=== PATIENT | female | born 1955 | race Caucasian/White ===

== ENCOUNTER 2020-07-25 07:43 | Outpatient (REF) | payer MEDICARE, MEDICAID, SELFPAY ==
--- NOTE | 2020-07-25 07:51 | MM_ITS ---
EXAMINATION: MM SCREENING DIGITAL BREAST TOMOSYNTHESIS, BILATERAL CLINICAL INFORMATION: Screening. Asymptomatic. The lifetime risk of breast cancer based on the Tyrer-Cuzick Model is 4%. COMPARISON: Mammography: 12/12/2015, 09/07/2014 TECHNIQUE: Digital breast tomosynthesis is performed in both the craniocaudal and mediolateral oblique views along with computer-aided detection (CAD). Synthesized 2D images are generated from the tomosynthesis. FINDINGS: There are scattered areas of fibroglandular density (ACR BI-RADS breast composition Category b). There are stable bilateral circumscribed nodularity likely intramammary nodes in the posterior upper outer quadrants. There is no interval mass or architectural abnormality or developing density. Scattered bilateral benign ductal secretory calcifications are again seen, bilaterally increased. Again, there are numerous uniform fine punctate round calcifications regionally distributed in the bilateral outer quadrants similar to prior exam. Please are considered benign and due to the bilateral symmetry and stability over years. The axilla and skin contours are unremarkable. No significant changes from prior exams. MM/MM tomosynthesis screening BI IMPRESSION: No significant changes from prior studies. ASSESSMENT: BI-RADS 2: Benign RECOMMENDATION: Routine annual mammography screening. This patient's information was entered into a reminder system with a target due date for their next mammogram.
== END 2020-07-25 07:44 | disposition home or self-care (01) ==
LOC: HO.MAMMO 07:43
PROVIDERS: Visit Provider Internal Medicine
DX: Z12.31 Encounter for screening mammogram for malignant neoplasm of breast (principal)
CPT/HCPCS: 77063; 77067

== ENCOUNTER 2021-03-31 06:02 | Emergency (ER) | payer MEDICARE, MEDICAID, SELFPAY ==
[2021-03-31 06:17] VITALS: BP 125/55; PULSE 86; RESP 16; TEMP 36.6; O2SAT 97; BMI 37.2
[2021-03-31 08:15] VITALS: O2SAT 95
[2021-03-31 08:49] LABS: Influenza A PCR NEGATIVE (Negative); Influenza B PCR NEGATIVE (Negative); Resp Syncy Virus RNA Qual PCR NEGATIVE (Negative); SARS COV2 PCR INHOUSE NEGATIVE (Negative)
--- NOTE | 2021-03-31 08:49 | ED.URI ---
HPI - URI/Sore Throat General Chief Complaint: Upper Respiratory Symptoms Stated Complaint: general medical Time Seen by Provider: 03/31/21 08:18 Source: patient Mode of arrival: ambulatory Limitations: no limitations History of Present Illness MD elicited complaint: sore throat, rhinorrhea, nasal congestion and sinus pain Pertinent past history: other (History of sinus infections) Onset (ago): day(s) (3 days worse today) Consistency: constant and progressively worsening Severity: moderate Description of mucous: clear, watery, yellow and green Able to tolerate fluids by mouth: Yes Exacerbating factors: nothing Relieving factors: nothing Associated symptoms: chills, myalgias, diaphoresis, headache, rhinorrhea, nasal congestion and sore throat Treatments prior to arrival: none Related Data Previous Rx's Medication Instructions Recorded amoxicillin 875 mg-potassium 1 tab PO BID PRN 10 Days #20 tab 03/31/21 clavulanate 125 mg tablet (Augmentin) fluticasone propionate 50 1 spray INTRANASAL BID #16 g 03/31/21 mcg/actuation nasal spray,suspension (Flonase Allergy Relief) Allergies Allergy/AdvReac Type Severity Reaction Status Date / Time ? unsure of antibiotic name Allergy Unknown Uncoded 01/02/21 14:02 AN ANTIBIOTIC (DOESN'T Allergy Unknown Uncoded 01/02/21 14:02 REMEMBER NAME) Review of Systems Review of Systems: Constitutional : Positive chills/fatigue/malaise, No Fever ENT/Mouth : Positive sore throat/rhinorrhea/nasal congestion/sinus pressure, no ear pain Eyes: No Discharge Cardiovascular : No Chest Pain, No SOB Respiratory : No Cough, No Sputum, No Wheezing, No Smoke Exposure, No Dyspnea Gastrointestinal : No Nausea, No Vomiting, No Diarrhea Genitourinary : No irregular bleeding, No Dysuria, No Urinary Frequency, No Hematuria, No Urinary Incontinence, No Urgency, No Flank Pain, Musculoskeletal : No Myalgia Skin : No rash Neuro : No Headache Yes all other systems are reviewed and are negative [facility] Past Medical History Attestation statement: The following information was validated with the patient. Social History Social History Alcohol intake: never Patient Tobacco Use Status: Never used Tobacco Use of substances other than those prescribed or required for medical reasons: No Advance Directives: No Physical Exam Vital Signs: Vital Signs: Last Vital Signs Temp 97.9 F 03/31/21 06:17 Pulse 86 03/31/21 06:17 Resp 16 03/31/21 06:17 BP 125/55 L 03/31/21 06:17 Pulse Ox 95 03/31/21 08:15 Body Mass Index 37.2 vital signs have been reviewed as normal and appeared to be correct. Blood pressure normal. Heart rate normal. Respiration rate normal. Temperature normal. Oxygen saturation normal. Appearance: Alert. Oriented X3. No acute distress. Head: Normal external exam. Normocephalic. Atraumatic. Patient with positive sinus pressure. Eyes: PERRLA. EOMI. Conjunctiva and sclera normal. Eyelids normal. ENT: EAC normal. TM's Normal. Pharynx normal. Uvula midline. Moist mucous membranes. No trismus noted. No drooling noted. No muffled voice noted. Neck: Normal inspection. Neck supple. FROM. No adenopathy. Thyroid Normal. No meningeal signs. No neck mass noted. CVS: Normal heart rate and rhythm. Heart sound normal. Pulses normal throughout. No murmurs/rales/gallops. Respiratory: No respiratory distress. Painless inspiration. Breath sounds normal. No wheezes/rales/rhonchi noted. Chest nontender. No accessory muscle usage noted or decreased air movement noted. Back: Full range of motion noted. No rashes/lesion/induration/fluctuance or signs of infection noted. Skin: Skin warm and dry. Normal skin color. Normal skin turgor. No rashes/lesions/lacerations noted. Extremities: Extremities exhibit normal range of motion. Extremities nontender. Neuro: Oriented X 3. No motor deficit. No sensory deficit. Reflexes normal. Normal steady gait. No focal neuro deficits noted. Vascular: + radial pulses/+ 2 distal pedal pulses/+2 dorsalis pedis b/l. Normal cap refill. No cyanosis noted to upper extremity nails and lower extremity toes nails. Course Course Course Narrative: 65-year-old female presenting to the ED with 3 days of intermittent headaches, sinus pressure, rhinorrhea/nasal congestion, sore throat, body aches, diaphoresis. Denies recent travel or sick contacts or any other symptoms complaints or concerns at this time. COVID/RSV/flu negative. On exam patient does not appear to have pharyngitis. Due to history of sinus infections will DC home with antibiotics for sinusitis and instructions to return if any new or worsening symptoms to follow up with primary care provider. Patient understands agrees with this plan. MDM - URI/Sore Throat Medical Records Attestation: I reviewed the patient's medical records. Lab Data Attestation: I reviewed the patient's lab results. Labs: Lab Results 03/31/21 Range/Units 08:00 Coronavirus (PCR) NEGATIVE (Negative) Influenza Type A (PCR) NEGATIVE (Negative) Influenza Type B (PCR) NEGATIVE (Negative) RSV RNA Qual (PCR) NEGATIVE (Negative) Discharge Plan Discharge Clinical Impression: Sinusitis Patient Disposition: Home, Self-Care Instructions: Sinusitis (ED) Prescriptions: New fluticasone propionate [Flonase Allergy Relief] 50 mcg/actuation spray,suspension 1 spray intranasal BID Qty: 16 RF: 0 amoxicillin-pot clavulanate [Augmentin] 875-125 mg tablet 1 tab PO BID PRN (Reason: Sinusitis) 10 Days Qty: 20 RF: 0 Referrals: Physician,Unknown [Primary Care Provider] - 2 days (your pcp) Print Language: Vietnamese
[2021-03-31 09:13] VITALS: BP 119/58; PULSE 90; RESP 16; O2SAT 97
--- NOTE | 2021-03-31 09:25 | PC.NURSE ---
pt states she is not vaccinated, she states she is afraid of the vaccine. Discussed vaccination safety with pt, she states she understands but remains afraid. She then wanted to discuss children and vaccines and that children should not be forced to wear masks. Explained discharge instructions to pt, asked her to follow with her PCP. She continued to discuss Covid related topics, explained to pt she was welcome to her viewpoint and this RN did not wish any further discussion. Discussed pt's sinus infection and home methods she can use for comfort. Pt discharged home.
== END 2021-03-31 09:46 | disposition home or self-care (01) ==
PROVIDERS: Emergency Provider Emergency Medicine Emergency Medical Services
DX: J32.9 Chronic sinusitis, unspecified (principal); Z20.822 Contact with and (suspected) exposure to COVID-19; J02.9 Acute pharyngitis, unspecified
CPT/HCPCS: 0241U; 36415; 99283; 99285

== ENCOUNTER 2022-07-12 16:30 | Outpatient (REF) | payer MEDICARE, MEDICAID, SELFPAY ==
--- NOTE | ~2022-07-12 | XR_ITS ---
EXAMINATION: XR CHEST CLINICAL INFORMATION: Shortness of breath COMPARISON: Previous chest x-ray February 2019 TECHNIQUE: 2 views of the chest were obtained. FINDINGS: No significant abnormality is noted involving the heart, lungs, mediastinum, bony thorax or soft tissues. XR/XR chest 2V IMPRESSION: Unremarkable examination.
== END 2022-07-12 16:31 | disposition home or self-care (01) ==
LOC: HO.XRAY 16:30
PROVIDERS: PCP Internal Medicine; Visit Provider Internal Medicine Critical Care Medicine
DX: J45.909 Unspecified asthma, uncomplicated (principal); R06.02 Shortness of breath
CPT/HCPCS: 71046

== ENCOUNTER 2023-02-06 11:08 | Outpatient (REF) | payer MEDICARE, MEDICAID, SELFPAY ==
[2023-02-06 12:04] LABS: Anion Gap 13 (12-20); Blood Urea Nitrogen 15 mg/dL (9-16); Calcium 9.5 mg/dL (8.4-10.2); Carbon Dioxide 29 mmol/L (22-29); Chloride 104 mmol/L (96-108); Estimated Glomerular Filt Rate > 60; Glucose Random 111 mg/dL (60-115); Sodium 142 mmol/L (135-145)
[2023-02-06 12:21] LABS: Thyroid Stimulating Hormone 0.96 uIU/mL (0.32-4.0)
[2023-02-06 12:37] LABS: Folate 15.3 ng/mL (> or = 4.0); Vitamin B12 551 pg/mL (200-900)
== END 2023-02-06 11:09 | disposition home or self-care (01) ==
LOC: HO.LAB 11:08
PROVIDERS: PCP Internal Medicine; Visit Provider Psychiatry & Neurology Neurology
DX: G31.84 Mild cognitive impairment of uncertain or unknown etiology (principal)
CPT/HCPCS: 36415; 80048; 82607; 82746; 84443

== ENCOUNTER 2023-02-19 10:10 | Outpatient (REF) | payer MEDICARE, MEDICAID, SELFPAY ==
--- NOTE | ~2023-02-19 | CT_ITS ---
EXAMINATION: CT HEAD WITHOUT CONTRAST CLINICAL INFORMATION: Mild cognitive impairment. COMPARISON: No relevant prior imaging. TECHNIQUE: Contiguous axial imaging was performed from the skull base to vertex without intravenous administration of contrast. This CT examination was performed using dose optimization techniques as appropriate, variously including the following: *Automated exposure control *Adjustment of mA and/or kV according to patient size (this includes techniques or standardized protocols for targeted exams where dose is matched to indication/reason for exam; i.e. extremities or head) *Use of iterative reconstruction technique DLP: 800 mGy-cm FINDINGS: There is no acute intracranial hemorrhage or abnormal extra-axial collection. No intracranial mass effect or midline shift. Lateral and third ventricles are normal. No hydrocephalus. Scattered nonspecific foci of hypoattenuation visualized within the periventricular white matter. Chowdary-white matter differentiation is otherwise preserved and there is no evidence of acute territorial infarct. The calvarium and skull base are intact. Mastoid air cells and middle ear cavities are well aerated. No active paranasal sinus disease. CT/CT head/brain wo IV con IMPRESSION: There are scattered chronic small vessel ischemic changes within the periventricular white matter. Otherwise unremarkable examination. No evidence of acute territorial infarct or hemorrhage.
== END 2023-02-19 10:11 | disposition home or self-care (01) ==
LOC: HO.CT 10:10
PROVIDERS: PCP Internal Medicine; Visit Provider Psychiatry & Neurology Neurology
DX: G31.84 Mild cognitive impairment of uncertain or unknown etiology (principal)
CPT/HCPCS: 70450

== ENCOUNTER 2024-01-13 21:01 | Emergency (ER) | payer MEDICARE, MEDICAID, SELFPAY ==
[2024-01-13 21:08] VITALS: BP 144/71; PULSE 85; RESP 20; TEMP 36.5; O2SAT 99; BMI 33.7
[2024-01-13 21:40] LABS: MANUAL DIFF FLAG NO
[2024-01-13 21:54] LABS: Basophils Absolute Auto 0.1 X10*3/uL (0.0-0.2); Basophils Percent Auto 1.1 % (0-2); Eosinophils Absolute Auto 0.3 X10*3/uL (0.0-0.4); Eosinophils Percent Auto 4.3 % (0-4); Hematocrit 38.8 % (37.0-47.0); Hemoglobin 13.9 g/dl (12.0-16.0); Imm Gran Abs Auto 0.02 X10*3/uL (0.00-0.03); Imm Gran Pct Auto 0.3 % (0.0-0.4); Lymphocytes Absolute Auto 2.1 X10*3/uL (1.2-4.9); Lymphocytes Percent Auto 28.2 % (20-40); Mean Corpuscular HGB Conc 35.8 g/dl (31.0-35.0); Mean Corpuscular Hemoglobin 30.5 pg (27.0-33.0); Mean Corpuscular Volume 85.3 fL (80.0-98.0); Mean Platelet Volume 9.7 fL (9.4-12.3); Monocytes Absolute Auto 0.5 X10*3/uL (0.1-1.2); Monocytes Percent Auto 7.3 % (2-11); Neutrophils Absolute Auto 4.3 x10*3/uL (2.0-8.3); Neutrophils Percent Auto 58.8 % (45-73); Platelet Count 238 X10*3/uL (160-400); Red Blood Count 4.55 X10*6/uL (4.20-5.50); White Blood Count 7.3 X10*3/uL (4.8-10.8)
[2024-01-13 21:56] LABS: Alanine Aminotransferase 19 U/L (0-31); Albumin Level 4.7 g/dL (3.5-5.0); Alkaline Phosphatase 69 U/L (39-117); Anion Gap 18 (12-20); Aspartate Amino Transferase 19 U/L (5-31); Bilirubin Total 0.7 mg/dL (0.0-1.0); Blood Urea Nitrogen 21 mg/dL (9-16); Calcium 10.1 mg/dL (8.4-10.2); Carbon Dioxide 23 mmol/L (22-29); Chloride 108 mmol/L (96-108); Creatinine Clr Calc Pharmacy 75.7; Estimated Glomerular Filt Rate > 60; Glucose Random 135 mg/dL (60-115); Potassium 3.8 mmol/L (3.3-5.1); Sodium 145 mmol/L (135-145); Total Protein 7.9 g/dL (6.5-8.0)
[2024-01-13 21:57] LABS: Appearance Urine Cloudy; Color Urine Dark Yellow; Glucose Urine UA Negative (Negative); Leukocyte Esterase Urine Small (1+) (Negative); Nitrite Urine Negative (Negative); Specific Gravity - Urine >= 1.030 (1.005-1.025); UMIC TRIGGER UACC YES; Urine Blood Negative (Negative); Urine Ketones Trace mg/dL (Negative); Urine Protein 30 (1+) mg/dL (Neg-Trace)
[2024-01-13 22:08] LABS: Bacteria Urine None Seen (None Seen); Hyaline Casts Urine 0-2 /LPF (0-2); RBC Urine 0-2 /HPF (0-2); Squamous Epithelial Cell Urine 0-2 /HPF (0-2); UACC Culture Trigger YES; WBC Urine 0-5 /HPF (0-5)
[2024-01-13 22:09] LABS: Calcium Oxalate Crystals Urine Present
[2024-01-14 03:25] VITALS: BP 124/61; PULSE 75; O2SAT 98
--- OUTSIDE RECORDS SUMMARY | 2024-01-14 03:59 | XMS_ITS | Continuity of Care Document ---
Author Organization [facility] Address [address] [place] [address]- Care Team Providers Care Seafood Manager Name Role Phone Arjun ARANGO, Clem Primary Care Physician Encounter [facility] Date(s): 05/16/23 - 05/23/23 [facility] [address], [place] [address] Attending Physician: Barb Yen MD Referring Physician: Clem Díaz MD Allergies, Adverse Reactions, Alerts No Known Allergies Medications Advair Diskus 100 mcg-50 mcg inhalation powder 1, inhalation, Inhalation, 2 times a day, Refills 0, Maintenance, 05/22/20 10:31:00 EDT Start Date: 05/22/20 Status: Ordered amphetamine-dextroamphetamine 10 mg oral capsule, extended release 1 capsule = 10 mg, By Mouth, 3 times a day, 0 Refills, Maintenance, 05/22/20 10:31:00 EDT Start Date: 05/22/20 Status: Ordered aspirin 81 mg oral delayed release tablet 1 tablet = 81 mg, By Mouth, Daily, 0 Refills, Maintenance, 05/22/20 10:32:00 EDT Start Date: 05/22/20 Status: Ordered Citalopram = 40 mg, By Mouth, Daily, 0 Refills, Maintenance, 05/22/20 10:39:00 EDT Start Date: 05/22/20 Status: Ordered CoQ10 = 300 mg, By Mouth, Daily, 0 Refills, Maintenance, 05/22/20 10:33:00 EDT Start Date: 05/22/20 Status: Ordered glyburide-metformin 5 mg-500 mg oral tablet 1 tablet, By Mouth, 2 times a day, 0 Refills, Maintenance, 09/05/14 14:41:39 Start Date: 09/05/14 Status: Ordered Januvia 100 mg oral tablet 1 tablet = 100 mg, By Mouth, Daily, 0 Refills, Maintenance, 09/05/14 14:41:49 Start Date: 09/05/14 Status: Ordered Levemir 100 units/mL subcutaneous solution Subcutaneous Infusion, 0 Refills, Maintenance, 05/22/20 10:28:00 EDT Start Date: 05/22/20 Status: Ordered Lisinopril = 30 mg, By Mouth, Daily, 0 Refills, Maintenance, 05/22/20 10:29:00 EDT Start Date: 05/22/20 Status: Ordered Multivitamin Daily, 0 Refills, Maintenance, 05/22/20 10:32:00 EDT Start Date: 05/22/20 Status: Ordered NovoLog Inj Subcutaneous Infusion, 3 times a day before meals, 0 Refills, Maintenance, 09/05/14 14:39:55 Start Date: 09/05/14 Status: Ordered ProAir HFA 2 puffs, Inhalation, Every 6 hours, 0 Refills, Maintenance, 05/22/20 10:31:00 EDT Start Date: 05/22/20 Status: Ordered Vytorin 10 mg-10 mg oral tablet 1 tablet, By Mouth, Daily, 0 Refills, Maintenance, 09/05/14 14:42:13 Start Date: 09/05/14 Status: Ordered Problem List Condition Confirmation Course Effective Dates Status Health St atus Informant Asthma Confirmed Active Obesity (BMI 30-39.9) Confirmed Active Acid reflux Confirmed Active Tourette syndrome Confirmed Active Glaucoma Confirmed Active HLD (hyperlipidemia) Confirmed Active HTN (hypertension) Confirmed Active Incisional hernia Confirmed Active Abdominal wall mass Confirmed Active Anxiety and depression Confirmed Active PTSD (post-traumatic stress disorder) Confirmed Active Type 2 diabetes mellitus Confirmed Active Vital Signs Most recent to oldest [Reference Range]: 1 Height 160.02 cm (05/16/23 11:26 AM) Oxygen Saturation [94-100 %] 99 % (05/16/23 11:26 AM) Pulse Rate [55-90 bpm] 81 bpm (05/16/23 11:26 AM) Blood Pressure [90-138/55-84 mm Hg] 135/ 73mm Hg (05/16/23 11:26 AM) Respiratory Rate [16-30 br/min] 20 br/mi n (05/16/23 11:26 AM) Temperature [96.8-100.4 DegF] 97.7 DegF (05/16/23 11:26 AM) Mode of Delivery (Oxygen) Room air (05/16/23 11:26 AM) Blood pressure sites Arm, left (05/16/23 11:26 AM) Temperature Route Oral (05/16/23 11:26 AM) Social History Social History Type Response Smoking Status Former smoker, quit more than 30 days ago; Other: quit 8 years ago; entered on: 05/22/20 Sex Note * Camilla Donohue: PERFORM, SIGN, VERIFY Event Display: Patient Education/Instruction Authored Date: [id number] [facility] Clinical Summary Name JOLENE ZIMMERMAN Age 68 Years 1955 PCP Arjun ARANGO, Clem PCP Visit Date 05/16/2023 10:44:00 Additional Instructions: Scheduled Appointments?? Future Appointments ?No Future Appointments Scheduled Follow-Up Instructions ?? Diagnosis Medications: Please continue your medications until treatment is completed or stopped by your provider. Discuss any questions related to medications with your provider. New Medications [facility] [place], [place] [id number], [phone] Clarithromycin (clarithromycin 500 mg oral tablet) 1 tab(s) Oral every 12 hours for 7 Days. Refills: 0. Next Dose: Medications to Continue with No Changes These medications were not printed or sent to your pharmacy Albuterol (ProAir HFA) 2 puff(s) Inhalation every 6 hours. Next Dose: Amphetamine-Dextroamphetamine (amphetamine-dextroamphetamine 10 mg oral capsule, extended release) 1 capsule Oral 3 times a day. Next Dose: Aspirin (aspirin 81 mg oral delayed release tablet) 1 tab(s) Oral Daily. Next Dose: Citalopram 40 Milligram Oral Daily. Next Dose: Ezetimibe-Simvastatin (Vytorin 10 mg-10 mg oral tablet) 1 tab(s) Oral Daily. Next Dose: Fluticasone-Salmeterol (Advair Diskus 100 mcg-50 mcg inhalation powder) 1 inhalation Inhalation twice a day. Next Dose: Glyburide-Metformin (glyburide-metformin 5 mg-500 mg oral tablet) 1 tab(s) Oral twice a day. Next Dose: Insulin Aspart (NovoLog Inj) Subcutaneous Infusion 3 times a day before meals. Next Dose: Insulin Detemir (Levemir 100 units/mL subcutaneous solution) Subcutaneous Infusion. Next Dose: Lisinopril 30 Milligram Oral Daily. Next Dose: Multivitamin Daily. Next Dose: sitagliptin (Januvia 100 mg oral tablet) 1 tab(s) Oral Daily. Next Dose: Ubiquinone (CoQ10) 300 Milligram Oral Daily. Next Dose: Allergy Info:?? NKA Medications Given This Visit Future Orders ?No future orders Vital Signs Height 160.02 cm Weight BMI Blood Pressure 135 mm Hg/73 mm Hg Temperature 97.7 DegF Pulse Rate 81 bpm Respiratory Rate 20 br/min 02 Sat Mode of Delivery 99 %/Room air You can now view a summary of your hospital visit from the comfort of your home through a free online portal called [employer]. [employer] is a website that allows you to securely view your medical information including discharge summary, medications and follow-up visits. ??You can alsosend a secure electronic message to your doctor???s office to request appointments, renew medications or just ask a question. You can enroll at [email or web address] or register during your next office visit. Disclaimer:?? The information provided is of a general nature and is intended to be used in conjunction with the recommendations and advice of your health care practitioner. ??Every effort has been made to ensure that the information provided is accurate and complete at the time it is provided to you however, as your needs change, or, as new ??information becomes available, different or additional instructions may be required. If you have questions, please consult with your primary care provider or pharmacist, as appropriate. ??This information is not intended to serve as substitution for assessment and evaluation by a qualified health care provider. If you do not have a primary care provider, you may find a [facility] provider by calling [facility] [employer] Link at [phone]. [facility], in keeping with [facility] guidance, no longer requires face masks for staff, patientsor visitors in most situations. Similar to time spent indoors at other locations, there is the chance that you were exposed to respiratory viruses during your time with us (such as flu or COVID-19).? If you develop symptoms concerning for a viral respiratory infection, please seek testing (and treatment if indicated) from your medical provider or home test kit. For information about the plan of care including goals and instructions for your diagnosis, please see the patient education orders section of this document. Patient Education Materials?? The content of this educational material or handout may have been modified, supplemented, or adapted from its original content and format to support your individualized medical care. Patient Care team information Care Team Personnel Name: Clem Díaz MD Position: Reference Physician Member Role: PCP Address: Address: [address] [place] [address] [address] [facility] [place] [address]- Care Team Related Persons Name: PHILIP ZIMMERMAN Address: home [address] [place] [address] Name: ARNOL GONZALES Address: [address] [place] [address]
--- OUTSIDE RECORDS SUMMARY | 2024-01-14 03:59 | XMS_ITS | Continuity of Care Document ---
Author Organization [facility] Address [address] [place] [address]- Care Team Providers Care Shoe Reconditioner Name Role Phone Arjun ARANGO, Clem Primary Care Physician Encounter [facility] Date(s): 05/16/23 - 06/15/23 [facility] [address] [place], [place] [address] Attending Physician: Emilio Madison Admitting Physician: Emilio Madison Referring Physician: AdmtrEmilio Allergies, Adverse Reactions, Alerts No Known Allergies [...] Active Type 2 diabetes mellitus Confirmed Active Social History Social History Type Response Smoking Status Former smoker, quit more than 30 days ago; Other: quit 8 years ago; entered on: 05/22/20 Sex Patient Care team information Care Team Personnel Name: Clem Díaz MD Position: Reference Physician Member Role: PCP Address: Address: [address] [place] [address]- Care Team Related Persons Name: PHILIP ZIMMERMAN Address: home [address] [place] [id number] Name: CHRISTIAN, ARNOL Address: home [address] [place] [id number]
[2024-01-14 05:10] VITALS: BP 129/61; PULSE 70; O2SAT 95
--- NOTE | 2024-01-14 05:54 | ED_ITS ---
HPI - Female Genitourinary General Chief complaint: Urogenital-Female Stated complaint: lower abd pain Time Seen by Provider: 01/14/24 05:54 Source: patient Mode of arrival: ambulatory Limitations: no limitations History of Present Illness ED Provider: dr Dai HPI Narrative: Patient no significant past medical history complaining of dysuria frequency or intensity for last few hours with suprapubic discomfort no hematuria no history of kidney stone no flank pain no nausea no vomiting Related Data Home Medications ?Medication ?Instructions ?Recorded ?Confirmed albuterol sulfate 90 mcg/actuation 2 puff inhalation Q4-6H PRN 04/10/21 09/26/22 aerosol inhaler alclometasone 0.05 % topical cream appl topical 04/10/21 09/26/22 bismuth subsalicylate 262 mg 2 tab PO QID 04/10/21 chewable tablet (Bismatrol) blood sugar diagnostic (SensopiaTouch #10 ea 04/10/21 09/26/22 Ultra Test strips) citalopram 40 mg tablet 40 mg PO BEDTIME 04/10/21 09/26/22 clotrimazole-betamethasone 1 appl topical 04/10/21 09/26/22 %-0.05 % topical cream coenzyme Q10 100 mg capsule 100 mg PO DAILY 04/10/21 dextroamphetamine-amphetamine 10 1 tab PO BID 04/10/21 09/26/22 mg tablet dextroamphetamine-amphetamine ER 1 cap PO DAILY 04/10/21 09/26/22 30 mg 24hr capsule,extend release empagliflozin 10 mg tablet 10 mg PO DAILY 04/10/21 (Jardiance) ezetimibe 10 mg tablet 10 mg PO DAILY 04/10/21 09/26/22 fluconazole 150 mg tablet 150 mg PO ONCE 04/10/21 glipizide 5 mg-metformin 500 mg 2 tab PO BID 04/10/21 09/26/22 tablet insulin aspart U-100 100 unit/mL unit subcut 04/10/21 09/26/22 (3 mL) subcutaneous pen (Novolog FlexPen U-100 Insulin aspart) insulin detemir U-100 100 unit/mL unit subcut 04/10/21 09/26/22 (3 mL) subcutaneous pen (Levemir FlexTouch U-100 Insulin) metronidazole 250 mg tablet 250 mg PO QID 04/10/21 omeprazole 20 mg capsule,delayed 20 mg PO BID 04/10/21 release omeprazole 20 mg tablet,delayed 20 mg PO BID 04/10/21 release omeprazole 40 mg capsule,delayed 40 mg PO DAILY 04/10/21 release pen needle, diabetic 31 gauge x #1,200 ea 04/10/21 09/26/22 5/16 (BD Ultra-Fine Short Pen Needle) simvastatin 20 mg tablet 20 mg PO BEDTIME 04/10/21 09/26/22 tetracycline 500 mg capsule 500 mg PO BID 04/10/21 dulaglutide 0.75 mg/0.5 mL mg subcut 09/26/22 09/26/22 subcutaneous pen injector (Trulicity) fluticasone 250 mcg-salmeterol 50 1 ea inhalation BID 09/26/22 09/26/22 mcg/dose blistr powdr for inhalation (Advair Diskus) losartan 100 mg tablet 100 mg PO DAILY 09/26/22 09/26/22 Previous Rx's ?Medication ?Instructions ?Recorded amoxicillin 875 mg-potassium 1 tab PO BID PRN Sinusitis 10 days 03/31/21 clavulanate 125 mg tablet #20 tabs (Augmentin) fluticasone propionate 50 1 spray intranasal BID Nasal 03/31/21 mcg/actuation nasal congestion #16 grams spray,suspension (Flonase Allergy Relief) amoxicillin 875 mg-potassium 1 tab PO Q12H 10 days #20 tabs 09/26/22 clavulanate 125 mg tablet cefuroxime axetil 250 mg tablet 250 mg PO BID 7 days #14 tabs 01/14/24 phenazopyridine 200 mg tablet 200 mg PO TID 2 days #6 tabs 01/14/24 (Pyridium) Allergies Allergy/AdvReac Type Severity Reaction Status Date / Time ? unsure of antibiotic name Allergy Unknown Unknown Uncoded 01/13/24 21:11 AN ANTIBIOTIC (DOESN'T Allergy Unknown Unknown Uncoded 01/13/24 21:11 REMEMBER NAME) Review of Systems 2 Review of Systems: Yes all other systems are reviewed and are negative [facility] Social History Social History Alcohol intake: never Patient Tobacco Use Status: Never used Tobacco Smoked in Last 30 Days: No Use of substances other than those prescribed or required for medical reasons: No Advance Directives: No Advance Directives Information Provided: Yes Physical Exam 2 Vital Signs: Vital Signs: Last Vital Signs Temp 97.9 F 01/14/24 06:00 Pulse 70 01/14/24 06:00 Resp 16 01/14/24 06:00 BP 129/61 01/14/24 06:00 Pulse Ox 95 01/14/24 06:00 O2 Del Method Room Air 01/14/24 06:00 BMI result Body Mass Index 33.7 Appearance: Alert. Oriented X3. No acute distress. Eyes: No pallor or icterus ENT: Pharynx normal. Oral Mucosa moist Neck: Normal inspection. Neck supple. CVS: Normal heart rate and rhythm. Pulses normal. Respiratory: No respiratory distress. Equal air entry bilateral, no wheezing/rales/rhonchi Abdomen: Soft and nontender. Bowel sounds are present, no mass palpable, no CVA tenderness Skin: Skin warm and dry. Normal skin color. Normal skin turgor. Extremities: No lower extremity edema. No calf tenderness Neuro: Oriented X 3. Medications Administered Discontinued Medications Generic Name Dose Route Start Last Admin Trade Name Freq PRN Reason Stop Dose Admin Cefuroxime Axetil 500 mg 01/14/24 05:59 01/14/24 06:06 Cefuroxime Axetil 500 Mg Tablet PO 01/14/24 06:00 500 mg ONCE ONE Administration Phenazopyridine HCl 200 mg 01/14/24 05:59 01/14/24 06:06 Phenazopyridine Hcl 200 Mg Tablet PO 01/14/24 06:00 200 mg ONCE ONE Administration Medical Decision Making Medical Decision Making [facility] Narrative: Patient is symptomatic for acute cystitis although has only few leukocytes prescribe Ceftin Lab Data [facility] Lab Attestation statement: I reviewed the patient's lab results. 01/13/24 21:35 01/13/24 21:35 Labs: Lab Results 01/13/24 Range/Units 21:35 WBC 7.3 (4.8-10.8) X10*3/uL RBC 4.55 (4.20-5.50) X10*6/uL Hgb 13.9 (12.0-16.0) g/dl Hct 38.8 (37.0-47.0) % MCV 85.3 (80.0-98.0) fL MCH 30.5 (27.0-33.0) pg MCHC 35.8 H (31.0-35.0) g/dl RDW 13.0 (11.0-16.0) % Plt Count 238 (160-400) X10*3/uL MPV 9.7 (9.4-12.3) fL Immature Gran % (Auto) 0.3 (0.0-0.4) % Neut % (Auto) 58.8 (45-73) % Lymph % (Auto) 28.2 (20-40) % [place] % (Auto) 7.3 (2-11) % Eos % (Auto) 4.3 H (0-4) % Baso % (Auto) 1.1 (0-2) % Lymph # (Auto) 2.1 (1.2-4.9) X10*3/uL [place] # (Auto) 0.5 (0.1-1.2) X10*3/uL Eos # (Auto) 0.3 (0.0-0.4) X10*3/uL Baso # (Auto) 0.1 (0.0-0.2) X10*3/uL Abs Immat Gran (auto) 0.02 (0.00-0.03) X10*3/uL Absolute Neuts (auto) 4.3 (2.0-8.3) x10*3/uL Absolute Nucleated RBC 0.000 (0.0-0.012) X10*3/uL Nucleated RBC % (auto) 0.0 (0.0-0.2) /100WBC Sodium 145 (135-145) mmol/L Potassium 3.8 (3.3-5.1) mmol/L Chloride 108 (96-108) mmol/L Carbon Dioxide 23 (22-29) mmol/L Anion Gap 18 (12-20) BUN 21 H (9-16) mg/dL Creatinine 0.75 (0.5-1.4) mg/dL Estim Creat Clear Calc 75.7 Estimated GFR > 60 Random Glucose 135 H (60-115) mg/dL Calcium 10.1 D (8.4-10.2) mg/dL Total Bilirubin 0.7 (0.0-1.0) mg/dL AST 19 (5-31) U/L ALT 19 (0-31) U/L Alkaline Phosphatase 69 (39-117) U/L Total Protein 7.9 (6.5-8.0) g/dL Albumin 4.7 (3.5-5.0) g/dL Urine Color Dark Yellow Urine Appearance Cloudy Urine pH 5.0 (5.0-9.0) Ur Specific [place] >= 1.030 H (1.005-1.025) Urine Protein 30 (1+) H (Neg-Trace) mg/dL Urine Glucose (UA) Negative (Negative) mg/dL Urine Ketones Trace (Negative) mg/dL Urine Blood Negative (Negative) Urine Nitrite Negative (Negative) Ur Leukocyte Esterase Small (1+) H (Negative) Urine RBC 0-2 (0-2) /HPF Urine WBC 0-5 (0-5) /HPF Ur Squamous Epith Cells 0-2 (0-2) /HPF Calcium Oxalate Crystal Present Urine Bacteria None Seen (None Seen) Hyaline Casts 0-2 (0-2) /LPF Discharge Plan Discharge Clinical Impression: Cystitis Patient Disposition: Home, Self-Care Instructions: Urinary Tract Infection in Women (ED) Additional Instructions: Drink plenty of fluids Possible you have early urinary tract infection Take antibiotics as prescribed Pyridium for bladder discomfort which will changed color of the urine to orange Report to the ER if worsening of the pain/blood in urine Prescriptions: New cefuroxime axetil 250 mg tablet 250 mg PO BID 7 Days Qty: 14 0RF phenazopyridine [Pyridium] 200 mg tablet 200 mg PO TID 2 Days Qty: 6 0RF No Action fluticasone propionate [Flonase Allergy Relief] 50 mcg/actuation spray,suspension 1 spray intranasal BID Qty: 16 0RF Rx Instructions: administer into each nostril amoxicillin-pot clavulanate [Augmentin] 875-125 mg tablet 1 tab PO BID PRN (Reason: Sinusitis) 10 Days Qty: 20 0RF dextroamphetamine-amphetamine 30 mg capsule,extended release 24hr 1 cap PO DAILY dextroamphetamine-amphetamine 10 mg tablet 1 tab PO BID Levemir FlexTouch U100 Insulin 100 unit/mL (3 mL) insulin pen subcut (DME) pen needle, diabetic [BD Ultra-Fine Short Pen Needle] 31 gauge x 5/16 needle See Rx Instructions subcut QID Qty: 1200 Rx Instructions: As directed (DME) OneTouch Ultra Test Strip See Rx Instructions .ROUTE TID Qty: 10 Rx Instructions: As directed Jardiance 10 mg tablet 10 mg PO DAILY ezetimibe 10 mg tablet 10 mg PO DAILY simvastatin 20 mg tablet 20 mg PO BEDTIME bismuth subsalicylate [Bismatrol] 262 mg tablet,chewable 2 tab PO QID omeprazole 20 mg capsule,delayed release(DR/EC) 20 mg PO BID metronidazole 250 mg tablet 250 mg PO QID tetracycline 500 mg capsule 500 mg PO BID coenzyme Q10 100 mg capsule 100 mg PO DAILY insulin aspart U-100 [Novolog FlexPen U-100 Insulin] 100 unit/mL (3 mL) insulin pen subcut glipizide-metformin 5-500 mg tablet 2 tab PO BID albuterol sulfate 90 mcg/actuation HFA aerosol inhaler 2 puff inhalation Q4-6H PRN omeprazole 40 mg capsule,delayed release(DR/EC) 40 mg PO DAILY citalopram 40 mg tablet 40 mg PO BEDTIME clotrimazole-betamethasone 1-0.05 % cream topical fluconazole 150 mg tablet 150 mg PO ONCE alclometasone 0.05 % cream topical omeprazole 20 mg tablet,delayed release (DR/EC) 20 mg PO BID Boostrix Tdap 2.5-8-5 Lf-mcg-Lf/0.5mL syringe 0.5 ml IM ONCE Qty: 0.5 0RF Trulicity 0.75 mg/0.5 mL pen injector subcut losartan 100 mg tablet 100 mg PO DAILY fluticasone propion-salmeterol [Advair Diskus] 250-50 mcg/dose blister with device 1 ea inhalation BID amoxicillin-pot clavulanate 875-125 mg tablet 1 tab PO Q12H 10 Days Qty: 20 0RF Interventions: ED Discharge Assessment Last Done: 01/14/24 06:00 Discharge Date/Time: 01/14/24 06:00 Print Language: Slovak
[2024-01-14 06:00] VITALS: BP 129/61; PULSE 70; RESP 16; TEMP 36.6; O2SAT 95
[2024-01-14] MEDS: Phenazopyridine HCL 200 MG TABLET PO (06:06)
[2024-01-14] MEDS: cefuroxime axetiL 500 MG TABLET PO (06:06)
== END 2024-01-14 06:00 | disposition home or self-care (01) ==
PROVIDERS: Emergency Provider Internal Medicine; PCP Internal Medicine
DX: N30.90 Cystitis, unspecified without hematuria (principal); R30.0 Dysuria; Z79.899 Other long term (current) drug therapy
CPT/HCPCS: 36415; 80053; 81001; 85025; 87086; 99283; 99284

== ENCOUNTER 2024-07-03 23:19 | Emergency (ER) | payer MEDICARE, MEDICAID, SELFPAY ==
[2024-07-03 23:28] VITALS: BP 150/75; BP 194/86; PULSE 101; PULSE 115; RESP 16; TEMP 36.9; O2SAT 96; BMI 33.0
[2024-07-03 23:33] VITALS: BP 150/75; PULSE 100; RESP 18; TEMP 36.9; O2SAT 96
[2024-07-04] MEDS: LORazepam 1 MG TABLET PO (00:33)
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
[2024-07-04 00:43] VITALS: BP 150/75; PULSE 100; RESP 18; TEMP 36.9; O2SAT 96
== END 2024-07-04 00:44 | disposition home or self-care (01) ==
PROVIDERS: Emergency Provider Internal Medicine; PCP Internal Medicine
DX: F41.9 Anxiety disorder, unspecified (principal)
CPT/HCPCS: 99282; 99283

== ENCOUNTER 2025-01-22 21:28 | Emergency (ER) | payer MEDICARE, OTHER, SELFPAY ==
[2025-01-22 21:35] VITALS: BP 139/72; BP 154/79; PULSE 101; PULSE 112; RESP 20; TEMP 36.8; O2SAT 95; O2SAT 96; BMI 33.7
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
--- OUTSIDE RECORDS SUMMARY | 2025-01-22 21:55 | XMS_ITS | Clinical Summary ---
Author Organization [address] [facility] Address [address] [place] [address] Phone Care Team Providers Care Driving Instructor Name Role Phone Clem Díaz MD Primary Care Provider [phone] Allergies No known active allergies Medications pen needle, diabetic (BD Ultra-Fine Short Pen Needle) 31 gauge x 5/16 needle use twice a day 10/17/19 11 Active ONETOUCH ULTRASOFT LANCETS MISC Test once a day 04/13/20 20 Active OneTouch Ultra Test test strip USE TO TEST BLOOD SUGAR 3 TIMES A DAY.. 12/21/19 21 Active alclomethasone (ACLOVATE) 0.05 % cream APPLY TOPICALLY TO AFFECTED AREAS OF DERMATITIS TWO TIMES A DAY FOR UP TO 2 WEEKS THEN TAKE 1 WEEK OFF. MAY REPEAT NEEDED 02/13/20 21 Active allopurinoL (ZYLOPRIM) 100 mg tablet daily. 05/26/20 20 Active amphetamine-de xtroamphetamin e XR (ADDERALL XR) 30 mg 24 hr capsule TAKE ONE CAPSULE BY MOUTH EVERY DAY 05/03/20 20 Active amphetamine-de xtroamphetamin e (ADDERALL) 10 mg tablet Take 1 Tablet by mouth as needed. 12/21/19 21 Active dulaglutide (Trulicity) 1.5 mg/0.5 mL pen injector injection Inject into the skin. Active fluticasone-sa lmeterol (Advair Diskus) 250-50 mcg/dose diskus inhaler INHALE ONE PUFF BY MOUTH TWICE A DAY 03/17/20 23 Active famotidine (PEPCID) 20 mg tablet Take 1 Tablet by mouth 2 times daily as needed for Heartburn. 05/01/20 23 Active fluticasone propionate (FLONASE) 50 mcg/actuation nasal spray 1 [place] by Nasal route 2 times daily as needed for Rhinitis or Allergies. 12/23/19 24 Active glipiZIDE-metF ORMIN (METAGLIP) 5-500 mg per tablet 5-500 mg 2 Times Daily. 12/04/19 17 Active insulin detemir (Levemir FlexPen) 100 unit/mL (3 mL) injection pen INJECT 30 UNITS SUBCUTANEOUSLY ONCE A DAY.. 05/26/20 20 Active insulin lispro 100 unit/mL injection 100 Units/mL. 07/10/20 12 Active ketoconazole (NIZORAL) 2 % cream APPLY 2 TIMES DAILY TO RASH UNDER BREASTS, ABDOMEN, AND GROIN/INNER THIGHS FOR 3 WEEKS OR UNTIL RESOLVED, MAY REPEAT NEEDED 11/16/19 21 Active latanoprost (XALATAN) 0.005 % ophthalmic solution INSTILL 1 DROP INTO BOTH EYES AT BEDTIME.. 03/21/20 20 Active triamcinolone (KENALOG) 0.025 % ointment APPLY 2 TIMES A DAY TO AFFECTED AREAS UNDER THE BREASTS/ ABDOMEN, AND GROIN AREA WHEN RASH IS FLARING, (MAY USE UP TO 2 WEEKS THEN TAKE 1 WE 11/17/19 21 Active albuterol HFA (Ventolin HFA) 90 mcg/actuation inhaler INHALE ONE PUFF BY MOUTH EVERY 4 HOURS NEEDED FOR WHEEZING OR SHORTNESS OF BREATH 08/12/20 23 Active DULoxetine (CYMBALTA) [address] capsule TAKE 1 CAPSULE BY MOUTH DAILY ALONG WITH 20MG CITALOPRAM FOR 1 WEEK, THEN INCREASE TO 2 CAPSULES DAILY, AND STOP THE CITALOPRAM. 01/12/20 24 Active mupirocin (BACTROBAN) 2 % ointment ADMINISTER 1 APPLICATION TOPICALLY TO THE SKIN TWO TIMES A DAY FOR 10 DAYS 06/10/20 24 Active simvastatin (ZOCOR) 20 mg tablet TAKE ONE TABLET BY MOUTH AT BEDTIME 90 tablet 1 07/23/20 24 Active ezetimibe (ZETIA) 10 mg tablet TAKE ONE TABLET BY MOUTH EVERY DAY 90 tablet 1 07/23/20 24 Active coenzyme Q-10 100 mg capsule Take 1 capsule (100 mg total) by mouth 1 (one) time each day. 90 capsule 5 07/27/20 24 Active losartan (COZAAR) 100 mg tablet Take 1 tablet (100 mg total) by mouth 1 (one) time each day. 90 tablet 1 10/07/19 25 Active tirzepatide (Mounjaro) 7.5 mg/0.5 mL injection Inject 0.5 mL (7.5 mg total) under the skin every 7 (seven) days. Active loperamide (IMODIUM) 2 mg capsule Take 1 capsule (2 mg total) by mouth 4 (four) times a day if needed for diarrhea. 60 capsule 1 12/02/19 25 Active omeprazole (PriLOSEC) [address] capsuleIndicat ions:Abdominal pain, chronic, epigastric Take 1 capsule (20 mg total) by mouth 1 (one) time each day. Do not crush or chew. 90 each 1 12/25/19 25 025 Active dicyclomine (BENTYL) 10 mg capsule Take 1 capsule (10 mg total) by mouth 4 (four) times a day if needed (diarrhea). 360 capsule 12/25/19 25 025 Active dicyclomine (BENTYL) 10 mg capsule Take 1 Capsule by mouth 4 times daily (before meals and nightly). Take for abdominal cramping 05/01/20 23 025 Discontin ued(Reord er) omeprazole (PriLOSEC) [address] capsule Take 1 capsule (20 mg total) by mouth 1 (one) time each day. Do not crush or chew. 30 each 1 12/02/19 25 025 Discontin ued(Reord er) Active Problems Problem Noted Date Diagnosed Date Mild chronic gastritis 06/18/2022 Abnormal EKG 04/01/2022 Overview (07/12/2024): Last Assessment & Plan: There are possible inferior Q waves on her EKG. For this reason I would like to obtain an echocardiogram to evaluate cardiac structure and function in case of a silent prior myocardial infarction. Atypical chest pain 03/27/2022 Overview (07/12/2024): Last Assessment & Plan: Unremarkable echocardiogram and stress test without evidence of active ischemia. Patient symptoms on presentation possibly related to gastritis which has now been treated Obstructive sleep apnea 08/16/2020 Overview (07/12/2024): [facility] Home Sleep Apnea Test: Date 08/09/2020; Wt 207#; BMI 37; EMILY (AHI) 8, AI 1; HI 7; Unclassified apneas 0; Obstructive apneas 2; Central apneas 3; Mixed apneas 0; hypopneas 61; average oxygen saturation 93% (lowest 85% without saturations <88% for 5% or more of study) - Obstructive Sleep Apnea - mild; mostly hypopneas; without sleep related hypoventilation by 2019 home sleep apnea test. Abdominal wall mass 02/14/2020 PTSD (post-traumatic stress disorder) 02/01/2019 Severe obesity (BMI 35.0-35. 9 with comorbidity) ([facility] V24, [facility] V28) 02/01/2019 Hyperlipidemia 12/31/2017 Overview (07/12/2024): Last Assessment & Plan: Single elevated reading of LDL is likely spurious in the context of stopping medications for treatment of H. pylori. I would plan to continue statin therapy and at some point in future can recheck lipid profile. Goal LDL less than 100 Allergic rhinitis 12/11/2017 Diabetic neuropathy ([facility] V24, [facility] V28) 0 12/11/2017 Asthma 12/09/2016 Anxiety disorder 12/03/2016 Depression 12/03/2016 Type 2 diabetes mellitus wit h neurological manifestations ([facility] V24, [facility] V28) 11/23/2015 Tourettes syndrome 10/08/2011 Encounters Date Type Department Care Team Description 12/24/2024 10:00 AM EDT Office Visit Gastroenterology - [address] [phone] Bina Easley NP Abdominal pain, chronic, epigastric (Primary Dx); Generalized anxiety disorder 12/01/2024 4:00 PM EDT Office Visit Internal Medicine [address] [phone] Clem Díaz MD Pain of upper abdomen (Primary Dx); Loose stools; Diarrhea, unspecified type; Mild chronic gastritis 11/30/2024 Telephone Internal Medicine - [address] [place] [phone] Clem Díaz MD Abdominal Pain from Last 3 Months Immunizations Name Administration Dates Next Due Tdap Tetanus diptheria acell ular pertussis (Boostrix; Adacel) 7yo and older 09/12/2020 Surgical History Surgery Date Site/Laterality Comments CHOLECYSTECTOMY PROCEDURE: HISTORICAL CHOLECYSTECTOMY HYSTERECTOMY PROCEDURE: HISTORICAL HYSTERECTOMY MULTIPLE TOOTH EXTRACTIONS PROCEDURE: HISTORICAL DENTAL EXTRACTION Medical History Medical History Date Comments Severe obesity (BMI 35.0-39. 9) with comorbidity ([facility] V24, [facility] V28) 02/01/2019 DX:Severe obesity (BMI 35.0- 39.9) with comorbidity ([facility]) Allergic rhinitis 12/11/2017 DX:Allergic rh initis Anxiety disorder 12/03/2016 DX:Anxiety diso rder Asthma 12/09/2016 DX:Asthma Depression 12/03/2016 DX:Depression Diabetic neuropathy ([facility] V24, [facility] V28) 12/11/2017 DX:Diabetic neuropathy ([facility]) Hyperlipidemia 12/31/2017 DX:Hyperlipidemi a Tourettes syndrome 10/08/2011 DX:Tourettes syndrome Type 2 diabetes mellitus wit h neurological manifestations ([facility] V24, [facility] V28) 11/23/2015 DX:Type 2 diabetes mellitus with neurological manifestations ([facility]) PTSD (post-traumatic stress disorder) 02/01/2019 DX:PTSD (post-traumatic stress disorder) Glaucoma DX:Glaucoma; COM MENT: drops Irritable bowel syndrome DX:Irri table bowel syndrome Esophageal reflux DX:Esophageal reflux Social History Tobacco Use Types Packs/Day Years Used Date Smoking Tobacco: Former Smokeless Tobacco: Never Alcohol Use Standard Drinks/Week Comments Not Currently 0 (1 standard drink = 0.6 oz pur e alcohol) Comments Unknown Sex and Gender Information Value Date Recorded Sex Assigned at Not on file Legal Sex Female 1:28 PM EST Gender Identity Not on file Sexual Orientation Not on file Obstetrics History Last Filed Vital Signs Vital Sign Reading Time Taken Comments Blood Pressure 142/75 12/24/2024 9:57 AM EDT Pulse 118 12/24/2024 9:57 AM EDT Temperature 36.9 ??C (98.5 ??F) 12/01/2024 4:16 PM ED T Respiratory Rate - - Oxygen Saturation 98% 12/24/2024 9:57 AM EDT Inhaled Oxygen Concentration - - Weight 86.2 kg (190 lb) 12/24/2024 9:57 AM EDT Height 160 cm (5' 3 ) 12/24/2024 9:57 AM EDT Body Mass Index 33.66 12/24/2024 9:57 AM EDT Plan of Treatment Health Maintenance Due Date Last Done Comments Breast Cancer Screening 1956 Diabetes: Annual Foot Exam 1966 Pneumococcal Vaccine: 50+ Years (1 of 2 - PCV) 1975 Zoster Vaccines (1 of 2) 2006 RSV Immunization Adult Patients (1 - Risk 60-74 years 1-dose series) 2016 Depression Screening 08/03/2022 Hepatitis C Screening 08/03/2022 Medicare Annual Wellness Visit 08/03/2022 Osteoporosis Screening (Bone Density Screening) 08/03/2022 Social Influencers of Health Screening 08/03/2022 Diabetes: Annual Urine Albumin-Creatinine Ratio (uACR) 08/09/2022 04/16/2021 Diabetes: Blood Sugar Contro l Test (HGBA1C) 10/19/2022 04/18/2022 COVID-19 Vaccine (1 - 2023-2 5 season) 2024 Falls Risk Assessment 07/24/2024 07/24/2023 Influenza Vaccine (Season Ended) 2025 Diabetes: Annual Retina Eye Exam 12/16/2025 12/16/2024, 12/16/2023 Diabetes: Annual GFR (Glomerular Filtration Rate) 12/20/2025 12/20/2024, 04/18/2022 Hypertension/CHF/CAD Annual BMP Blood Test 12/20/2025 12/20/2024, 04/18/2022 Cholesterol Screening (Lipid Panel) 04/18/2027 04/18/2022 Colorectal Cancer Screening: Colonoscopy 05/21/2032 05/21/2022 DTaP,Tdap,and Td Vaccines (3 - Td or Tdap) 09/26/2032 09/26/2022, 09/12/2020 HIB Vaccines Aged Out No longer eligi ble based on patient's age to complete this topic HPV Vaccines Aged Out No longer eligi ble based on patient's age to complete this topic Hepatitis A Vaccines Aged Out No long er eligible based on patient's age to complete this topic Hepatitis B Vaccines Aged Out No long er eligible based on patient's age to complete this topic IPV Vaccines Aged Out No longer eligi ble based on patient's age to complete this topic MMR Vaccines Aged Out No longer eligi ble based on patient's age to complete this topic Meningococcal ACWY Vaccine Aged Out N o longer eligible based on patient's age to complete this topic Meningococcal B Vaccine Aged Out No l onger eligible based on patient's age to complete this topic RSV Immunization Patients Under 20 months Aged Out No longer eligible b ased on patient's age to complete this topic Varicella Vaccines Aged Out No longer eligible based on patient's age to complete this topic Procedures Procedure Name Priority Date/Time Associated Diagnosis Comments CBC WITH AUTO DIFFERENTIAL Routine 12/20/2024 11:15 AM EDT Pain of upper abdomen Loose stools THYROID STIMULATING HORMONE Routine 12/20/2024 11:15 AM EDT Pain of upper abdomen Loose stools Diarrhea, unspecified type LIPASE Routine 12/20/2024 11:15 AM EDT Pain of upper abdomen Loose stools HELICOBACTER PYLORI ANTIGEN, STOOL Routine 12/20/2024 11:15 AM EDT Pain of upper abdomen Loose stools COMPREHENSIVE METABOLIC PANEL Routine 12/20/2024 11:15 AM EDT Pain of upper abdomen Loose stools CBC AND DIFFERENTIAL Routine 12/20/2024 11:15 AM EDT Pain of upper abdomen Loose stools EXTERNAL DIABETIC RETINA EYE EXAM 12/16/2024 FALLS RISK ASSESSMENT Routine 07/24/2023 HM COLONOSCOPY Routine 05/21/2022 HEMOGLOBIN A1C Routine 04/18/2022 LIPID PANEL Routine 04/18/2022 URINE ALBUMIN CREATININE RATIO Routine 04/16/2021 from Last 3 Months or Most Recently Relevant to Health Maintenance Results * CBC auto differential (12/20/2024 11:15 AM EDT) [facility] Signature WBC 6.1 4.8 - 10.8 K/mcL LAB [facility] RBC 4.40 3.80 - 4.80 M/mcL LAB HEMETOLOGY METHOD [facility]/20[facility] Hemoglobin 13.3 11.5 - 16.0 g/dL LAB HEMETOLOGY METHOD 12/20/2024 12:55 PM [facility] Hematocrit 39.3 35.0 - 47.0 % LAB HEMETOLOGY METHOD 12/20/2024 12:55 PM [facility] MCV 88.5 79.0 - 98.0 FL LAB HEMETOLOGY METHOD 12/20/2024 12[facility] MCH 30.0 27.0 - 32.0 pcg LAB HEMETOLOGY METHOD 12/20/2024 12:55 PM [facility] MCHC 33.8 32.0 - 37.0 g/dL LAB HEMETOLOGY METHOD 12/20/2024 12:55 PM [facility] RDW 12.9 11.0 - 15.0 % LAB HEMETOLOGY METHOD 12/20/2024 12:55 PM [facility] Platelets 258 130 - 400 K/mcL LAB HEMETOLOGY METHOD 12/20/2024 12:55 PM [facility] MPV 10.1 7.0 - 11.0 FL LAB HEMETOLOGY METHOD 12/20/2024 12:55 PM [facility] NRBC 0.0 <1.0 % LAB HEMETOLOGY METHOD 12/20/2024 [facility] NRBC Absolute 0.00 <0.10 K/mcL LAB HEMETOLOGY METHOD 12/20/2024 12:55 PM EDT [facility] Neutrophils Relative 61.1 % LAB HEMETOLOGY METHOD 12/20/2024 12:55 PM [facility] Lymphocytes Relative 26.7 % LAB HEMETOLOGY METHOD 12/20/2024 12:55 PM [facility] Monocytes Relative 7.6 % LAB HEMETOLOGY METHOD 12/20/2024 12:55 PM [facility] Eosinophils Relative 3.1 % LAB HEMETOLOGY METHOD 12/20/2024 12:55 PM [facility] Basophils Relative 1.2 % LAB HEMETOLOGY METHOD 12/20/2024 12:55 PM [facility] Immature Granulocytes Relative 0.3 % LAB HEMETOLOGY METHOD 12/20/2024 12:55 PM [facility] Neutrophils Absolute 3.70 1.50 - 7.00 K/mcL LAB HEMETOLOGY METHOD 12/20/2024 12:55 PM [facility] Lymphocytes Absolute 1.62 1.00 - 5.00 K/mcL LAB HEMETOLOGY METHOD 12/20/2024 12:55 PM [facility] Monocytes Absolute 0.46 0.20 - 1.00 K/mcL LAB HEMETOLOGY METHOD 12/20/2024 12:55 PM T [facility] Eosinophils Absolute 0.19 0.00 - 0.50 K/mcL LAB HEMETOLOGY METHOD 12/20/2024 12:55 PM [facility] Basophils Absolute 0.07 0.00 - 0.20 K/mcL LAB HEMETOLOGY METHOD 12/20/2024 12:55 PM [facility] Immature Granulocytes Absolute 0.02 0.00 - 0.03 K/mcL LAB HEMETOLOGY METHOD 12/20/2024 12:55 PM EDT [facility] Blood Venous blood specimen / Unknown Venipuncture / Unknown 12/20/2024 11:15 AM EDT 12/20/2024 12:06 PM EDT Clem Díaz MD LAB BLOOD ORDERABLES Final Resul t [facility] [address] [place] [address], * Helicobacter pylori antigen, stool (12/20/2024 11:15 AM EDT) Helicobacter Pylori Ag Not detected Not detected 12/22/2024 2:11 PM EDT [facility] Comment: This test was performed at [facility] using a chemiluminescent immunoassay intended for the qualitative determination of helicobacter pylori (H. pylori) antigen in human stool. The test is an aid in the diagnosis of patients suspected of H. pylori infection and to measure post therapy response from patients. Assay results should be used in conjunction with other clinical and laboratory data to assist the clinician in making individual patient management decisions. A negative test result does not preclude the possibility of the presence of H. pylori antigen in the specimen, which may occur if the level of antigen is below the detection limit of the test. Antimicrobials, proton pump inhibitors, and bismuth preparations are known to suppress H. pylori and, if ingested, may give a false negative result. In these cases a new fecal sample should be collected and tested 14 days after treatment has stopped. Positive results from patients that have used antibiotics, PPIs, or bismuth compounds in the 14 days prior to fecal sample collection are still considered accurate. This assay has not been evaluated in a pediatric population. This test has been approved as an in vitro diagnostic by the [place] Food and Drug Administration. Test performed at [facility], [address] , [place], [place] ??[address] ? [phone] Keisha Daley MD, PhD - Oil Spraying Machine Operator Stool Rectum structure / Unknown Non-blood Collection / Unknown 12/20/2024 11:15 AM EDT 12/20/2024 11:57 AM EDT us Clem Díaz MD LAB BODY FLUIDS AND STOOLS ORDER SUJEY Final Result Performing Organization Address City/[facility]/ZIP Co de Phone [place] [address] [place] [address] * Thyroid stimulating hormone (12/20/2024 11:15 AM EDT) TSH 1.00 0.40 - 4.00 mcIU/mL LAB CHEMISTRY METHOD 12/20/2024 7:12 PM EDT [facility] Blood Venous blood specimen / Unknown Venipuncture / Unknown 12/20/2024 11:15 AM EDT 12/20/2024 11:59 AM EDT us Clem Díaz MD LAB BLOOD ORDERABLES Final Resul t Performing Organization Address [facility] de Phone Number [facility] [address] [place] [address], [place] [phone] * Lipase (12/20/2024 11:15 AM EDT) Pathologist [facility] Lipase 61 13 - 75 unit/L LAB CHEMISTRY METHOD 12/20/2024 6:58 PM EDT [facility] Blood Venous blood specimen / Unknown Venipuncture / Unknown 12/20/2024 11:15 AM EDT 12/20/2024 11:59 AM EDT us Clem Díaz MD LAB BLOOD ORDERABLES Final Resul t Performing Organization Address [facility] de Phone Number [facility] [address] [place] [address], [place] [phone] * (ABNORMAL) Comprehensive metabolic panel (12/20/2024 11:15 AM EDT) Sodium 142 133 - 145 mmol/L LAB CHEMISTRY METHOD 12/20/2024 6:58 PM EDT [facility] Potassium 4.2 3.5 - 5.5 mmol/L LAB CHEMISTRY METHOD 12/20/2024 6:58 PM [facility] Chloride 108 96 - 110 mmol/L LAB CHEMISTRY METHOD 12/20/2024 6:58 PM [facility] CO2 27 21 - 32 mmol/L LAB CHEMISTRY METHOD 12/20/2024 6:58 PM [facility] Anion Gap 7 3 - 11 LAB CHEMISTRY METHOD 12/20/2024 6:58 PM [facility] Glucose 193(H) 70 - 100 mg/dL LAB CHEMISTRY METHOD 12/20/2024 6:58 PM [facility] BUN 16 5 - 25 mg/dL LAB CHEMISTRY METHOD 12/20/2024 6:58 PM [facility] Creatinine 0.73 0.50 - 1.10 mg/dL LAB CHEMISTRY METHOD 12/20/2024 6:58 PM [facility] eGFR 90 >=60 mL/min/1. 73m2 LAB CHEMISTRY METHOD 12/20/2024 6:58 PM [facility] Comment:Calculation based on the??Chronic Kidney Disease Epidemiology Collaboration (CKD-EPI) equation refit??without adjustment for race. BUN/Creatinine Ratio 21.9 LAB CHEMISTRY METHOD 12/20/2024 6:58 PM [facility] Calcium 9.2 8.5 - 10.5 mg/dL LAB CHEMISTRY METHOD 12/20/2024 6:58 PM [facility] AST (SGOT) 22 10 - 42 unit/L LAB CHEMISTRY METHOD 12/20/2024 6:58 PM [facility] ALT (SGPT) 35 10 - 60 unit/L LAB CHEMISTRY METHOD 12/20/2024 6:58 PM [facility] Alkaline Phosphatase 76 42 - 121 unit/L LAB CHEMISTRY METHOD 12/20/2024 6:58 PM [facility] Total Protein 7.1 6.0 - 8.0 g/dL LAB CHEMISTRY METHOD 12/20/2024 6:58 PM EDT [facility] Albumin 3.8 3.2 - 5.0 g/dL LAB CHEMISTRY METHOD 12/20/2024 6:58 PM EDT [facility] Total Bilirubin 0.5 0.0 - 1.4 mg/dL LAB CHEMISTRY METHOD 12/20/2024 6:58 PM EDT [facility] Blood Venous blood specimen / Unknown Venipuncture / Unknown 12/20/2024 11:15 AM EDT 12/20/2024 11:59 AM EDT Result [facility] Clem Díaz MD LAB BLOOD ORDERABLES Final Resul t [facility] [address] [place] [address], [place] [phone] * External Diabetic Retina Eye Exam Report (12/16/2024) Anatomical Region Laterality Modality Ultrasound Provider Russ Onbase IMG US PROCEDURES Final Result * Falls Risk Assessment (07/24/2023) Pathologist [facility] Falls Risk Assessment Abstracted Result [facility] Sindy ARANGO HEALTH MAINTENANCE Final Result * Colonoscopy (05/21/2022) Pathologist [facility] Colonoscopy No Interpretation , Abstracted Anatomical Region Laterality Modality Other Result [facility] Historical Provider HEALTH MAINTENANCE Final Result * (ABNORMAL) Hemoglobin A1c (04/18/2022) [facility] Hemoglobin A1C 9.0(A) <=6.5 % Blood Venous blood specimen / Unknown Result [facility] Sindy ARANGO LAB BLOOD ORDERABLES Alisia l Result * (ABNORMAL) Lipid panel (04/18/2022) [facility] LDL/HDL Ratio 4 0 - 4 Triglycerides 298(A) 0 - 150 mg/dL Cholesterol 243(A) 0 - 200 mg/dL HDL 62 >=40 mg/dL LDL Cholesterol 122(A) 0 - 100 mg/dL Blood Venous blood specimen / Unknown Historical Provider LAB BLOOD ORDERABLES Alisia l Result * Urine Albumin Creatinine Ratio (04/16/2021) Urine Albumin Creatinine Ratio Abstracted Historical Provider HEALTH MAINTENANCE Final Result from Last 3 Months or Most Recently Relevant to Health Maintenance Insurance MEDICARE Care Teams Driving Instructor Relationship Specialty Start Date End Date Clem Díaz MD [address] [facility] [address] [place] [address] PCP - General Internal Medicine 07/07/18
[2025-01-22 22:02] LABS: MANUAL DIFF FLAG NO
[2025-01-22 22:03] LABS: Basophils Absolute Auto 0.1 X10*3/uL (0.0-0.2); Basophils Percent Auto 0.9 % (0-2); Eosinophils Absolute Auto 0.3 X10*3/uL (0.0-0.4); Eosinophils Percent Auto 4.6 % (0-4); Hematocrit 36.4 % (37.0-47.0); Imm Gran Abs Auto 0.02 X10*3/uL (0.00-0.03); Imm Gran Pct Auto 0.3 % (0.0-0.4); Lymphocytes Percent Auto 27.8 % (20-40); Mean Corpuscular HGB Conc 35.7 g/dl (31.0-35.0); Mean Corpuscular Hemoglobin 30.2 pg (27.0-33.0); Mean Corpuscular Volume 84.7 fL (80.0-98.0); Mean Platelet Volume 9.6 fL (9.4-12.3); Monocytes Absolute Auto 0.7 X10*3/uL (0.1-1.2); Monocytes Percent Auto 10.1 % (2-11); Neutrophils Percent Auto 56.3 % (45-73); Platelet Count 228 X10*3/uL (160-400); Red Cell Distribution Width 12.8 % (11.0-16.0)
[2025-01-22 22:16] LABS: Alanine Aminotransferase 33 U/L (0-31); Albumin Level 4.5 g/dL (3.5-5.0); Alkaline Phosphatase 70 U/L (39-117); Anion Gap 14 (12-20); Aspartate Amino Transferase 32 U/L (5-31); Bilirubin Total 0.5 mg/dL (0.0-1.0); Blood Urea Nitrogen 20 mg/dL (9-16); Calcium 9.8 mg/dL (8.4-10.2); Carbon Dioxide 26 mmol/L (22-29); Chloride 106 mmol/L (96-108); Creatinine Clr Calc Pharmacy 75.7; Estimated Glomerular Filt Rate > 60; Glucose Random 185 mg/dL (60-115); Magnesium 1.8 mg/dL (1.6-2.6); Potassium 4.3 mmol/L (3.3-5.1); Sodium 142 mmol/L (135-145); Total Protein 7.2 g/dL (6.5-8.0)
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
[2025-01-22 22:25] LABS: Troponin-I High Sensitivity < 2.7 ng/L (<3.5-17.0)
[2025-01-22] MEDS: LORazepam 1 MG TABLET 2 MG PO (22:45)
--- NOTE | 2025-01-22 22:46 | PC.NURSE ---
[employer] officers left bedside after getting statement/report from the patient. Awaiting CARE team to speak with the patient regarding depression & anxiety concerns. Pt reporting at this time I just feel hopeless and I'm so stressed about this whole situation . Patient is calm/cooperative with staff, thankful, pleasant. Call sullivan within reach. Reading book from home, warm blanket provided. Care ongoing by this RN.
--- NOTE | 2025-01-22 23:29 | PC.NURSE ---
Report given to Tanya TY in Pod. Crisis changeover completed. Changed over with this RN, Elise (installation and repair technician), & security present. No weapons. Belongings secured in Pod lockers. Belongings list documented by Elise. Patient reported suicidal ideation with plan to jump off of a tall building. Also stated that she's been calling her friends reporting feelings of hopelessness, depression, stress, anxiety, and wanting to end her life.
[2025-01-23 00:04] LABS: Appearance Urine Clear; Color Urine Yellow; Glucose Urine UA Negative (Negative); Leukocyte Esterase Urine Moderate (2+) (Negative); Nitrite Urine Negative (Negative); PH 5.5 (5.0-9.0); Specific Gravity - Urine 1.025 (1.005-1.025); UMIC TRIGGER UACC YES; Urine Blood Negative (Negative); Urine Ketones 15 mg/dL (Negative); Urine Protein 100 (2+) mg/dL (Neg-Trace)
[2025-01-23 00:09] LABS: Bacteria Urine None Seen (None Seen); RBC Urine 0-2 /HPF (0-2); UACC Culture Trigger YES; WBC Urine >50 /HPF (0-5)
[2025-01-23 00:29] LABS: Amphetamine Screen Urine POSITIVE (Not Detect); Barbiturates, Urine Not Detected (Not Detect); Benzodiazepines Screen Urine Not Detected (Not Detect); Buprenorphine Scr Not Detected (Not Detect); Cannabinoid Screen Urine Not Detected (Not Detect); Cocaine Screen Urine Not Detected (Not Detect); Fentanyl, urine Not Detected (Not Detect); Methadone Screen, Urine Not Detected (Not Detect); Opiate Screen Urine Not Detected (Not Detect); Oxycodone Screen Urine Not Detected (Not Detect); Phencyclidine Screen Urine Not Detected (Not Detect)
[2025-01-23 06:09] LABS: Glucose, Whole Blood 128 mg/dL (60-115)
[2025-01-23 06:22] VITALS: BP 118/66; PULSE 81; RESP 17; TEMP 36.6; O2SAT 96
--- NOTE | 2025-01-23 07:58 | PC.NURSE ---
Assumed care of patient at 0645, patient appears to be in no apparent distress this am, resting in bed, respirations even and unlabored. Continue plan of care for CARE team serena
--- NOTE | 2025-01-23 09:28 | PHA.MEDREC ---
Pharmacy Consult ? Medication Reconciliation Pharmacy has completed the medication reconciliation. Reviewed med rec done by nursing, matches claim history
--- NOTE | 2025-01-23 10:39 | MHC.CARE ---
Pt does not meet the criteria for IPLOC and will be discharged with a PHP referral. ED provider in agreement.
[2025-01-23 10:41] VITALS: BP 109/88; PULSE 84; RESP 16; TEMP 36.3; O2SAT 98
--- NOTE | 2025-01-24 08:26 | MHC.CARE ---
[facility] complete
== END 2025-01-23 10:45 | disposition home or self-care (01) ==
PROVIDERS: Emergency Provider Internal Medicine
DX: F41.9 Anxiety disorder, unspecified (principal); F32.A Depression, unspecified; R45.851 Suicidal ideations; N39.0 Urinary tract infection, site not specified; R07.89 Other chest pain; Z79.899 Other long term (current) drug therapy; Z79.4 Long term (current) use of insulin; Z79.02 Long term (current) use of antithrombotics/antiplatelets
CPT/HCPCS: 36415; 80053; 80307; 81001; 82947; 83735; 84484; 85025; 87086; 99285; S9485